=== PATIENT | male | born 1980 | race Caucasian/White ===

== ENCOUNTER 2023-08-26 17:59 | Emergency (ER) | payer OTHER, SELFPAY ==
--- NOTE | ~2023-08-26 | CT_ITS ---
EXAMINATION: CT CERVICAL SPINE WITHOUT CONTRAST CLINICAL INFORMATION: Left arm pain and numbness. Weakness left arm. COMPARISON: None available. TECHNIQUE: Noncontrast CT of the cervical spine was performed. This CT examination was performed using dose optimization techniques as appropriate, variously including the following: *Automated exposure control *Adjustment of mA and/or kV according to patient size (this includes techniques or standardized protocols for targeted exams where dose is matched to indication/reason for exam; i.e. extremities or head) *Use of iterative reconstruction technique DLP: 562 mGy-cm FINDINGS: There is straightening of the cervical lordosis. Vertebral body heights are maintained. The facet joints are anatomically aligned. There may be trace narrowing of the C5-C6 intervertebral disc space. The intervertebral disc spaces are otherwise maintained. The prevertebral soft tissue is normal in appearance. The paraspinal soft tissue is normal in appearance. At C2-C3 there is no significant disc herniation, spinal canal, or foraminal narrowing. At C3-C4 there is no significant disc herniation, spinal canal, or foraminal narrowing. At C4-C5 there is a shallow circumferential disc bulge. No spinal canal or foraminal narrowing. At C5-C6 there is a shallow circumferential disc bulge without spinal canal stenosis. No foraminal stenosis. At C6-C7: There is a shallow circumferential disc bulge without spinal canal stenosis. At C7-T1 there is no significant disc herniation, spinal canal or foraminal stenosis. The lung apices are clear. The thyroid gland is normal in appearance. The visualized brain parenchyma is normal in appearance. The visualized paranasal sinuses are clear. The mastoid air cells are clear. CT/CT cervical spine wo IV con IMPRESSION: No acute cervical spine abnormality. There is mild cervical spondylosis as described. There is no spinal canal stenosis at any cervical level. No significant foraminal narrowing. If symptoms persist, cervical spine MRI is recommended. Fleischner guidelines were followed.
--- NOTE | 2023-08-26 18:18 | ED_ITS ---
HPI - Neck Pain/Injury General Chief Complaint: Neck Pain/Injury Stated Complaint: pinched nerve in neck going down arm Time Seen by Provider: 08/26/23 18:25 Source: patient Mode of arrival: ambulatory Limitations: no limitations History of Present Illness HPI Narrative: Patient is a 42-year-old male who presents emergency department for evaluation of concern for pinched nerve in his neck. He reports 1-2 weeks decreased range of motion to left wrist that he awoke with 1 morning. He has had a couple of massages which have helped some. He states at this time he is experiencing intermittent left lateral neck pain, and his only symptom that is constant is weakness sensation to his left hand/wrist, and reported inability to dorsiflex the wrist. He denies any overt injury. He does admit that the day the symptoms were first noticed he had been sleeping on the ground outside while camping. 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 Related Data Previous Rx's ?Medication ?Instructions ?Recorded cyclobenzaprine 5 mg tablet 5 mg PO TID PRN muscle spasm #14 08/26/23 tabs Allergies Allergy/AdvReac Type Severity Reaction Status Date / Time No Known Allergies Allergy Verified 08/26/23 18:20 Review of Systems Review of Systems: Yes all other systems are reviewed and are negative [facility] Past Medical History Attestation statement: The following information was validated with the patient. Source: old records reviewed Social History Social History Advance Directives: No Advance Directives Information Provided: No Physical Exam Vital Signs: Vital Signs: Last Vital Signs Temp 98.5 F 08/26/23 19:46 Pulse 90 08/26/23 19:46 Resp 19 08/26/23 19:46 BP 140/88 H 08/26/23 19:46 Pulse Ox 98 08/26/23 19:46 O2 Del Method Room Air 08/26/23 19:46 BMI result Body Mass Index 29.0 Appearance: Alert.?Oriented to person, place and time. No acute distress.?Normal affect. Eyes: Pupils equal, round and reactive to light.? ENT: Pharynx normal.?? Neck: Normal inspection.? Neck supple.? Palpable tenderness of the left cervical paraspinal muscles. ? CVS: Heart sounds normal. Normal heart rate and rhythm.? Pulses normal.?? Respiratory: No respiratory distress.? Lung sounds clear to auscultation bilaterally?? Abdomen: Soft and non-tender. Normoactive bowel sounds. Skin: Skin warm and dry.? Normal skin color.? ? Extremities: No lower extremity edema.? No calf ttp?normal tone to the bilateral upper extremities. [employer] Supervisor strength 4/5 on the left, 5/5 on the right. Is able to hold the wrist in a neutral position and palmar flex with ease, difficulty with dorsiflexion of the wrist greater than 45 degrees. 2+ DTRs Neuro: Moves all extremities spontaneously. Sensation intact bilaterally. CN II- XII intact. No focal neuro deficits. Ambulates with normal steady gait. Medical Decision Making Medical Decision Making MDM Narrative: Patient is a 42-year-old male who presents emergency department for evaluation of left lateral neck pain and left arm weakness as per HPI. Overall he is well- appearing, nontoxic, afebrile. Aside from the weakness in hand design lead and mild decreased AROM with dorsiflexion to the left wrist as per physical exam portion of this note, there are no focal neurological deficits. The extremity remains neurovascularly intact distally. Has palpable tenderness of the lateral cervical paraspinal muscles, no midline cervical spine tenderness, step-offs, deformities. Concern at this time for radiculopathy, versus cubital/carpal tunnel syndrome. CT of the cervical spine was obtained to evaluate for acute pathology evidence of mild spondylosis, no central canal stenosis, no significant foraminal narrowing. These results were discussed with patient. Recommend outpatient follow-up with primary care provider, advised it may consider MRI imaging should his symptoms persist.. Differential Diagnosis Differential Diagnoses: The differential diagnosis associated with the presentation includes (See narrative above) Admission/Observation Consideration of admission/observation: Escalation of care including admission/observation considered (See narrative above) Radiology Impression Discussion of test interpretation with radiology: I have reviewed the radiologist's reading. Radiologist Impression: CT/CT cervical spine wo IV con IMPRESSION: No acute cervical spine abnormality. There is mild cervical spondylosis as described. There is no spinal canal stenosis at any cervical level. No significant foraminal narrowing. If symptoms persist, cervical spine MRI is recommended. Fleischner guidelines were followed. Prescription Management I considered prescription management with: Pain Medication (Acetaminophen/ibu profen) Discharge Plan Discharge Clinical Impression: Cervical radiculopathy Patient Disposition: Home, Self-Care Instructions: Cervical Radiculopathy (ED) Additional Instructions: A prescription for muscle relaxer was sent to your pharmacy; [facility] pharmacy on [address], [place] . This medication may make you drowsy. You should not drive, drink alcohol, or work while taking this medication Follow-up closely with your primary care provider. You may return back to emergency department any new or worsening symptoms or concerns. Prescriptions: New cyclobenzaprine 5 mg tablet 5 mg PO TID PRN (Reason: muscle spasm) Qty: 14 0RF Referrals: Physician,None [Primary Care Provider] - Print Language: Palauan
[2023-08-26 18:19] VITALS: BP 149/97; PULSE 93; RESP 18; TEMP 37.3; O2SAT 97; BMI 29.0
[2023-08-26 19:46] VITALS: BP 140/88; PULSE 90; RESP 19; TEMP 36.9; O2SAT 98
[2023-08-26 20:30] VITALS: BP 140/88; PULSE 90; RESP 19; TEMP 36.9; O2SAT 98
== END 2023-08-26 20:30 | disposition home or self-care (01) ==
PROVIDERS: Emergency Provider Emergency Medicine
DX: M54.12 Radiculopathy, cervical region (principal)
CPT/HCPCS: 72125; 99282; 99284